=== PATIENT | male | born 1985 | race Hispanic/Latino ===

== ENCOUNTER 2024-06-17 08:09 | Emergency (ER) | payer OTHER, BC ==
[2024-06-17] MEDS ORDERED: TDAP (DIPHTH,PERTUSS(ACELL),TET VAC) 0.5 ML VIAL IMVAC ONE (08:14)
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
--- NOTE | 2024-06-17 08:33 | EDPHYS ---
Physician Documentation [facility] Name: Riki Ojeda Age: 39 yrs Sex: Male : 1985 Arrival Date: 06/17/2024 Time: 08:09 Bed 6 Private MD: ED Physician Vick Quintanilla HPI: 06/17 08:14 This 39 yrs old Male presents to ER via Unassigned with complaints of rn laceration. 08:14 The patient has a laceration occurred at work. Onset: The symptoms/episode rn began/occurred just prior to arrival. The patient has not experienced similar symptoms in the past. Patient reports small lacerations to right arm from small pair of scissors. No active bleeding. Wounds are very superficial. Patient has [employer] and happened while at work. Unknown last tetanus. No other injury or complaint. Full range of motion of right hand and arm.. Historical: - Allergies: 08:20 No Known Allergies; bp - Home Meds: 08:20 Metformin Oral [Active]; Ozempic subcutaneous [Active]; omeprazole 40 mg Oral bp capsule,delayed release (e.c.) [Active]; - PMHx: 08:20 Diabetes mellitus; Hypertensive disorder; Hypercholesterolemia; bp - Immunization history:: Adult Immunizations up to date. - Infectious Disease History:: Denies. - Family history:: not pertinent. - Social history:: Smoking status: Patient denies any tobacco usage or history of. - Hospitalizations: : No recent hospitalization is reported. ROS: 08:14 Constitutional: Negative for fever, chills, and weight loss, MS/Extremity: Positive for rn superficial lacerations to the right wrist and forearm Neuro: Negative for weakness or numbness Exam: 08:14 Constitutional: This is a well developed, well nourished patient who is awake, alert, rn and in no acute distress. MS/ Extremity: Pulses equal, no cyanosis. Several superficial linear abrasions and lacerations to the volar and dorsal wrist. No active bleeding. No gaping of wounds that would require sutures. Very superficial and just past the epidermis. No significant swelling. No drainage. No active bleeding. Full range of motion of wrist and hand. Vital Signs: 08:18 BP 137 / 85; Pulse 87; Resp 16; Temp 98; Pulse Ox 98% ; bp MDM: 08:12 Medical Screening Exam initiated rn 08:31 Differential diagnosis: superficial laceration. Data reviewed: vital signs, nurses rn notes, and as a result, I will discharge patient. Counseling: I had a detailed discussion with the patient and/or guardian regarding the historical points, exam findings, and any diagnostic results supporting the discharge/admit diagnosis, the need for outpatient follow up, to return to the emergency department if symptoms worsen or persist or if there are any questions or concerns that arise at home. Special discussion: I discussed with the patient/guardian in detail that at this point there is no indication for admission to the hospital. It is understood, however, that if the symptoms persist or worsen the patient needs to return immediately for re-evaluation. 06/17 08:12 Order name: Wound Care; Complete Time: 08:18 rn 06/17 08:12 Order name: Wound dressing; Complete Time: 08:18 rn Administered Medications: 08:17 Drug: Tetanus Toxoid,Adsorbed IM 0.5 ml IM once; Provide Vaccine Information Statement bp (VIS). 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: [employer]; Exp: TueOct 31 2026; Lot #: [id number]; Series: 1 of ; Patient Consent: Obtained; Date/Time: ; Source Name: Riki Ojeda; Source Relationship: Self; Address Information: [address] [place] [address]; Education: Provided; VIS Presented Date: ; VIS Publication: Tetanus/Diphtheria/Pertussis (Tdap/Td) VIS 03/30/2011 (historic)} Route: IM; Site: left deltoid; 08:41 Follow up: Response: No adverse reaction bp Disposition Summary: 06/17/24 08:32 Discharge Ordered Notes: Location: Home rn Problem: new rn Symptoms: have improved rn Condition: Stable rn Diagnosis - Arm Laceration Right/Open wound forearm rn Followup: rn - With: Private Physician - When: As needed - Reason: Recheck today's complaints, Re-evaluation by your physician Discharge Instructions: - Discharge Summary Sheet rn - Laceration Care, Adult rn - Wound Care, Adult rn Forms: - Medication Reconciliation Form rn - 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
[2024-06-17 09:54] VITALS: BP 137/85; TEMP 98; O2SAT 98
== END 2024-06-17 08:42 | disposition home or self-care (01) ==
LOC: ER 08:09
DX: S51.811A Laceration without foreign body of right forearm, initial encounter (principal); W45.8XXA Other foreign body or object entering through skin, initial encounter; Y92.89 Other specified places as the place of occurrence of the external cause; Y99.0 Civilian activity done for income or pay; Z23 Encounter for immunization
CPT/HCPCS: 90471; 90715; 99284

== ENCOUNTER 2024-07-09 21:27 | Emergency (ER) | payer BC, OTHER ==
[2024-07-09] MEDS ORDERED: KETOROLAC 30 MG/ML INJ ONE (22:02)
[2024-07-09] MEDS ORDERED: CEFDINIR 300 MG CAP PO ONE (22:02)
[2024-07-09] MEDS ORDERED: CEFTRIAXONE 1000 MG/VIAL ONE (22:02)
--- NOTE | 2024-07-09 22:36 | ER ---
Nurse's Notes [facility] Name: Riki Ojeda Age: 39 yrs Sex: Male : 1985 Arrival Date: 07/09/2024 Time: 21:27 Bed 16 Private MD: Diagnosis: Acute sinusitis, unspecified;Acute suppurative otitis media without spontaneous rupture of ear drum, right ear Presentation: 07/09 21:33 Chief complaint: Patient states: NASAL CONGESTION, FLU LIKE SYMPTOMS, AND RIGHT EAR ha1 PAIN. 21:33 Coronavirus screen: Client denies travel out of the [place] in the last 14 days. Ebola ha1 Screen: No symptoms or risks identified at this time. Initial Sepsis Screen: Does the patient meet any 2 criteria? No. Patient's initial sepsis screen is negative. Does the patient have a suspected source of infection? No. Patient's initial sepsis screen is negative. Risk Assessment: Do you want to hurt yourself or someone else? Patient reports no desire to harm self or others. Onset of symptoms was July 09, 2024. 21:33 Method Of Arrival: Ambulatory ha1 21:33 Acuity: DAMARIS 4 ha1 Triage Assessment: 21:40 General: Appears uncomfortable, Behavior is calm, cooperative. Pain: Complains of pain ha1 in right ear Pain currently is 5 out of 10 on a pain scale. EENT: Reports pain in right ear. Neuro: Level of Consciousness is awake, alert, obeys commands, Oriented to person, place, time, situation. Cardiovascular: Capillary refill < 3 seconds Patient's skin is warm and dry. Respiratory: Reports NASAL CONGESTION Airway is patent Respiratory effort is even, unlabored, Respiratory pattern is regular, symmetrical. GI: No signs and/or symptoms were reported involving the gastrointestinal system. : No signs and/or symptoms were reported regarding the genitourinary system. Derm: Skin is healthy with good turgor, Skin is moist, Skin is normal. Musculoskeletal: Circulation, motion, and sensation intact. Range of motion: intact in all extremities. Historical: - Allergies: 21:40 No Known Allergies; ha1 - Home Meds: 21:40 Metformin Oral [Active]; ha1 - PMHx: 21:40 diabetes mellitus; Hypercholesterolemia; Hypertensive disorder; ha1 - Immunization history:: Adult Immunizations up to date. - Infectious Disease History:: Denies. - Social history:: Smoking status: Patient denies any tobacco usage or history of. - Family history:: not pertinent. Screenin:43 [facility] ED Fall Risk Assessment (Adult) History of falling in the last 3 months, ha1 including since admission No falls in past 3 months (0 pts) Confusion or Disorientation No (0 pts) Intoxicated or Sedated No (0 pts) Impaired Gait No (0 pts) Mobility Assist Device Used No (0 pt) Altered Elimination No (0 pt) Score/Fall Risk Level 0 - 2 = Low Risk Oriented to surroundings, Maintained a safe environment, Educated pt \T\ family on fall prevention, incl call for assistance when getting out of bed, Hourly rounding (assess needs \T\ fall precautionary measures) done. Abuse screen: Denies threats or abuse. Denies injuries from another. Nutritional screening: No deficits noted. Tuberculosis screening: No symptoms or risk factors identified. Assessment: 21:45 General: Appears in no apparent distress. comfortable, Behavior is calm, cooperative, rg5 appropriate for age. 21:45 Pain: Pain radiates to right ear Pain currently is 7 out of 10 on a pain scale. Quality rg5 of pain is described as aching, Pain began 2-3 days ago. Neuro: Level of Consciousness is awake, alert, obeys commands, Oriented to person, place, time. Cardiovascular: No deficits noted. Denies chest pain, Patient's skin is warm and dry. Respiratory: Airway is patent Trachea midline Respiratory effort is even, unlabored, Respiratory pattern is regular, symmetrical. GI: Abdomen is round non-distended. : No signs and/or symptoms were reported regarding the genitourinary system. EENT: Reports pain in right ear. Derm: Skin is intact, Skin is dry, Skin is normal. Musculoskeletal: Circulation, motion, and sensation intact. Range of motion: intact in all extremities. 22:30 Reassessment: Patient and/or family updated on plan of care and expected duration. Pain rg5 level reassessed. Patient is alert, oriented x 3, equal unlabored respirations, skin warm/dry/pink. Patient states symptoms have improved. Vital Signs: 21:33 BP 153 / 101; Pulse 77; Resp 18 S; Temp 98.6(O); Pulse Ox 98% on R/A; Weight 122.47 kg; ha1 Height 5 ft. 6 in. ; Pain 6/10; 22:30 BP 139 / 87; Pulse 75; Resp 18; Pulse Ox 98% on R/A; rg5 21:33 Body Mass Index 43.58 (122.47 kg, 167.64 cm) ha1 21:33 Pain Scale: Adult ha1 [place] Coma Score: 07/10 04:30 Eye Response: spontaneous(4). Motor Response: obeys commands(6). Verbal Response: sp4 oriented(5). Total: 15. ED Course: 07/09 21:29 Patient arrived in ED. gm2 21:33 Patient has correct armband on for positive identification. Bed in low position. Call ha1 light in reach. Side rails up X 1. 21:34 Keith Barrientos MD is Attending Physician. sp4 21:40 Negro Carreon RN is Primary Nurse. rg5 21:40 Triage completed. ha1 22:45 Provided Education on: post er care. Door closed. Noise minimized. rg5 22:45 No provider procedures requiring assistance completed. Patient did not have IV access rg5 during this emergency room visit. Administered Medications: 22:00 Drug: Ketorolac IM 30 mg IM once Route: IM; Site: left gluteus; rg5 22:41 Follow up: Response: No adverse reaction; Pain is decreased rg5 22:12 Drug: Rocephin (cefTRIAXone) IM 1 grams IM once Route: IM; Site: right gluteus; rg5 22:42 Follow up: Response: No adverse reaction; Pain is decreased rg5 22:12 Drug: Cefdinir PO 300 mg PO once Route: PO; rg5 22:41 Follow up: Response: No adverse reaction rg5 Medication: 21:45 VIS not applicable for this client. rg5 Point of Care Testing: Blood Glucose: 21:56 Blood Glucose: 133 mg/dL; rg5 Ranges: Outcome: 22:35 Discharge ordered by . sp4 22:45 Discharged to home ambulatory, rg5 22:45 Condition: good 22:45 Discharge instructions given to patient, Instructed on discharge instructions, follow up and referral plans. Demonstrated understanding of instructions, follow-up care, medications, Prescriptions given X 2, 22:47 Patient left the ED. rg5 Signatures: Marleen Schultz RN RN ha1 Keith Barrientos MD MD sp4 Annmarie Maloney gm2 Negro Carreon, DELMAR RN rg5
--- NOTE | 2024-07-09 22:36 | EDPHYS ---
Physician Documentation [facility] Name: Riki Ojeda Age: 39 yrs Sex: Male : 1985 Arrival Date: 07/09/2024 Time: 21:27 Bed 16 Private MD: ED Physician Keith Barrientos HPI: 07/09 21:34 This 39 yrs old Male presents to ER via Unassigned with complaints of Ear sp4 Pain, Congestion. 07/10 04:30 39-year-old male presents with complaint of the ear pain and congestion also bilateral sp4 facial pain. Historical: - Allergies: 07/09 21:40 No Known Allergies; ha1 - Home Meds: 21:40 Metformin Oral [Active]; ha1 - PMHx: 21:40 diabetes mellitus; Hypercholesterolemia; Hypertensive disorder; ha1 - Immunization history:: Adult Immunizations up to date. - Infectious Disease History:: Denies. - Social history:: Smoking status: Patient denies any tobacco usage or history of. - Family history:: not pertinent. ROS: 07/10 04:30 Constitutional: Negative for fever, chills, and weight loss, positive for right ear sp4 pain, positive for congestion, positive for bilateral facial pain. All other systems are negative, Exam: 04:30 Constitutional: This is a well developed, well nourished patient who is awake, alert, sp4 and in no acute distress. Head/Face: Normocephalic, atraumatic. Eyes: Pupils equal round and reactive to light, extra-ocular motions intact. Lids and lashes normal. Conjunctiva and sclera are not injected. Cornea within normal limits. Periorbital areas with no swelling, redness, or edema. ENT: Nares patent. No nasal discharge, no septal abnormalities noted. Tympanic membranes are normal and external auditory canals are clear. Oropharynx with no redness, swelling, or masses, exudates, or evidence of obstruction, uvula midline. Mucous membranes moist. Neck: Trachea midline, no thyromegaly or masses palpated, and no cervical lymphadenopathy. Supple, full range of motion without nuchal rigidity, or vertebral point tenderness. Chest/axilla: Normal chest wall appearance and motion. Nontender with no deformity. No lesions are appreciated. Cardiovascular: Regular rate and rhythm with a normal S1 and S2. No gallops, murmurs, or rubs. Normal PMI, no JVD. No pulse deficits. Respiratory: Lungs have equal breath sounds bilaterally, clear to auscultation and percussion. No rales, rhonchi or wheezes noted. No increased work of breathing, no retractions or nasal flaring. Abdomen/GI: Soft, with normal bowel sounds. No distension or tympany. No guarding or rebound. No evidence of tenderness throughout. Back: No spinal tenderness. No costovertebral tenderness. Skin: Warm, dry with normal turgor. Normal color with no rashes, no lesions, and no evidence of cellulitis. MS/ Extremity: Pulses equal, no cyanosis. Neurovascular intact. Full, normal range of motion. Neuro: Awake and alert, GCS 15, oriented to person, place, time, and situation. Cranial nerves II-XII grossly intact. Motor strength 5/5 in all extremities. Sensory grossly intact. Psych: Awake, alert, with orientation to person, place and time. Behavior, mood, and affect are within normal limits Vital Signs: 07/09 21:33 BP 153 / 101; Pulse 77; Resp 18 S; Temp 98.6(O); Pulse Ox 98% on R/A; Weight 122.47 kg; ha1 Height 5 ft. 6 in. ; Pain 6/10; 22:30 BP 139 / 87; Pulse 75; Resp 18; Pulse Ox 98% on R/A; rg5 21:33 Body Mass Index 43.58 (122.47 kg, 167.64 cm) ha1 21:33 Pain Scale: Adult ha1 [place] Coma Score: 07/10 04:30 Eye Response: spontaneous(4). Motor Response: obeys commands(6). Verbal Response: sp4 oriented(5). Total: 15. MDM: 07/09 21:48 Medical Screening Exam initiated sp4 07/10 04:30 Differential diagnosis: otitis media, otitis externa, acute otalgia, cerumen impaction, sp4 serotympanum. Data reviewed: vital signs, nurses notes, lab test result(s). Consideration of Admission/Observation Escalation of care including admission/observation considered. ED course: Patient stable for discharge home with p.o. cefdinir for 10 days. Findings consistent with acute bilateral sinusitis acute right otitis media. 07/09 22:06 Order name: Glucose, Ancillary Testing; Complete Time: 22:35 EDMS 07/09 21:48 Order name: Accucheck Blood Glucose; Complete Time: 21:56 sp4 Administered Medications: 07/09 22:00 Drug: Ketorolac IM 30 mg IM once Route: IM; Site: left gluteus; rg5 22:41 Follow up: Response: No adverse reaction; Pain is decreased rg5 22:12 Drug: Rocephin (cefTRIAXone) IM 1 grams IM once Route: IM; Site: right gluteus; rg5 22:42 Follow up: Response: No adverse reaction; Pain is decreased rg5 22:12 Drug: Cefdinir PO 300 mg PO once Route: PO; rg5 22:41 Follow up: Response: No adverse reaction rg5 Point of Care Testing: Blood Glucose: 21:56 Blood Glucose: 133 mg/dL; rg5 Ranges: Critical Glucose Levels:Adult <50 mg/dl or >400 mg/dl <40 mg/dl or >180 mg/dl Disposition: 07/10 04:32 Chart complete. sp4 Disposition Summary: 07/09/24 22:35 Discharge Ordered Notes: Location: Home sp4 Problem: new sp4 Symptoms: have improved sp4 Condition: Stable sp4 Diagnosis - Acute sinusitis, unspecified sp4 - Acute suppurative otitis media without spontaneous rupture of ear drum, right ear sp4 Followup: sp4 - With: Private Physician - When: 7 - 10 days - Reason: Recheck today's complaints Discharge Instructions: - Discharge Summary Sheet sp4 - Sinusitis, Adult, [id number] sp4 Forms: - Patient Portal Instructions sp4 Prescriptions: - cefdinir 300 mg Oral capsule - take 1 capsule ORAL route 2 times per day for 10 days; 20 capsule; Refills: 0, sp4 Product Selection Permitted - Ibuprofen 800 mg Oral Tablet - take 1 tablet ORAL route every 8 hours As needed take with food; 30 tablet; sp4 Refills: 0, Product Selection Permitted Signatures: Marleen Schultz RN RN ha1 Keith Barrientos MD MD sp4 Negro Carreon RN RN rg5
[2024-07-10 05:39] VITALS: TEMP 98.6; O2SAT 98
[2024-07-10 05:41] VITALS: BP 139/87
== END 2024-07-09 22:47 | disposition home or self-care (01) ==
LOC: ER 21:27
DX: H66.001 Acute suppurative otitis media without spontaneous rupture of ear drum, right ear (principal); J01.90 Acute sinusitis, unspecified; E11.9 Type 2 diabetes mellitus without complications
CPT/HCPCS: 82947; 96372; 99284; J0696